=== PATIENT | female | born 1985 | race Two or more races ===

== ENCOUNTER 2019-03-27 10:46 | Emergency (ER) | payer OTHER ==
[~2019-03-27] VITALS: Ht 152.4 cm; Wt 45.4 kg
[2019-03-27] MEDS ORDERED: METOCLOPRAMIDE HCL 10 MG/2 ML VIAL ONE (11:29)
[2019-03-27] MEDS ORDERED: KETOROLAC TROMETHAMINE 30 MG INJ ONE (11:29)
[2019-03-27 11:30] LABS: *BILIRUBIN,URIN NEGATIVE (NEGATIVE); *BLOOD, URINE 1+ (NEGATIVE); *CLARITY,URINE CLEAR (CLEAR); *COLOR,URINE YELLOW (YELLOW); *KETONES,URINE NEGATIVE (NEGATIVE); *UROBILINOGEN,URINE 0.2 E.U./dl (NORMAL); LEUKOCYTE ESTERASE ,URINE TRACE (NEGATIVE); NITRITE, URINE NEGATIVE (NEGATIVE); PH,URINE 5.5 (5.0-8.0); UGLUCOSE NEGATIVE (NEGATIVE)
[2019-03-27] MEDS: IV NORMAL SALINE 1000 ML BAG IV ONE (11:30)
[2019-03-27] MEDS: METOCLOPRAMIDE HCL 10 MG/2 ML VIAL IV ONE (11:30)
--- NOTE | 2019-03-27 11:30 | NUR ---
PATIENT WAS SEEN BY MD. MEDICATIONS GIVEN ORDERED. PATIENT STATES PAIN HAS DIMINISHED.
[2019-03-27] MEDS: KETOROLAC TROMETHAMINE 15 MG INJ IVP ONE (11:34)
[2019-03-27 11:36] LABS: BASOPHILS % (AUTO) 0.4 % (0.0-2.0); EOSINOPHILS # (AUTO) 0.1 K/uL (0.0-0.7); EOSINOPHILS % (AUTO) 1.9 % (0.0-7.0); HEMATOCRIT 40.2 % (31.2-41.9); HEMOGLOBIN 13.4 g/dL (10.9-14.3); LYMPHOCYTES # (AUTO) 1.1 K/uL (20.0-40.0); LYMPHOCYTES % (AUTO) 22.8 % (20.5-51.5); MEAN CORPUSCULAR HEMOGLOBIN 29.9 uug (24.7-32.8); MEAN CORPUSCULAR HGB CONC 33 g/dL (32.3-35.6); MEAN CORPUSCULAR VOLUME 89.5 fL (75.5-95.3); MONOCYTES # (AUTO) 0.3 K/uL (2.0-10.0); MONOCYTES % (AUTO) 6.4 % (0.0-11.0); NEUTROPHILS # (AUTO) 3.3 K/uL (1.8-8.9); NEUTROPHILS % (AUTO) 68.5 % (38.5-71.5); PLATELET COUNT (AUTO) 211 K/uL (179-408); RED BLOOD CELL COUNT(AUTO) 4.49 MIL/uL (3.63-4.92); WHITE BLOOD COUNT (AUTO) 4.8 K/uL (3.8-11.8)
[2019-03-27 11:39] LABS: CARBON DIOXIDE 30 mmol/L (21-32); CHLORIDE 107 mmol/L (98-107); CREATININE 0.5 mg/dL (0.6-1.3); GLUCOSE 82 mg/dL (74-106); POTASSIUM 4.1 mmol/L (3.5-5.1); UREA NITROGEN, BLOOD 10 mg/dL (7-18)
[2019-03-27 11:40] LABS: BACTERIA,URINE NONE SEEN /HPF (NONE SEEN); SQUAMOUS EPITHELIAL CELL,UR MANY /HPF (NONE SEEN)
[2019-03-27 11:45] LABS: ALANINE AMINOTRANSFERASE 15 U/L (14-59); ALKALINE PHOSPHATASE 54 U/L (50-136); ASPARTATE AMINOTRANSFERASE 11 U/L (15-37); BILIRUBIN,DIRECT 0.2 mg/dL (0.0-0.2); BILIRUBIN,TOTAL 0.9 mg/dL (0.2-1.0); LIPASE 120 U/L (73-393); TOTAL PROTEIN, SERUM 6.6 g/dL (6.4-8.2)
--- NOTE | 2019-03-27 13:01 | NUR ---
PATIENT IS AWAKE AND ALERT, AWAITING TEST RESULTS..
--- NOTE | 2019-03-27 14:33 | NUR ---
PATIENT IS AWAKE AND ALERT, AWAITING TEST RESULTS.
--- NOTE | 2019-03-27 15:14 | NUR ---
DC, RX AND FOLLOW UP INSTRUCTIONS GIVEN AND EXPAINED TO PATIENT WHO STATES SHE UNDERSTANDS ALL INSTRUCTIONS.
== END 2019-03-27 15:16 | disposition home or self-care (01) ==
LOC: ER 10:46
DX: R10.31 Right lower quadrant pain (principal); R10.32 Left lower quadrant pain
CPT/HCPCS: 36415; 74176; 76856; 80048; 80076; 81000; 81001; 83690; 84484; 84702; 85025; 87086; 96374; 96375; 99284; J1885; J2765; 70030-TC; A4663; J7030